=== PATIENT | male | born 1995 ===

== ENCOUNTER 2025-10-06 10:31 | Outpatient (AMB) | payer OTHER, SELFPAY ==
--- NOTE | 2025-10-06 10:35 | AM.OFFWIN_ITS ---
Intake Vital Signs 10/06/25 10:39 Height 5 ft 10 in Weight 132 lb BMI 18.9 BP 112/88 Blood Pressure Location Rt brachial Position Sitting Pulse 71 Pulse Source Pulse Oximeter Temp 97.6 F Temp Source Oral Pulse Oximetry (%) 99 Oxygen Delivery Method Room Air Intake Visit Reasons: [employer]-lt hand thumb swollen-WC Intake Note: Patient presents with LT thumb severe swelling and bruising with numbness after slamming this finger in a car door 4 days ago Allergies No Known Allergies Allergy (Verified 10/06/25 10:40) Do you need a note to return to daycare/school/sports/work: Yes HPI HPI Comments History of Present Illness Details This is a 29-year-old male who presented to the walk-in clinic comp laining of left thumb pain, swelling, and bruising x4 days. 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 He states this occurred just about 4 days ago. He went to [facility] about 12 hours later and he was diagnosed with a subungual hematoma. He had x-rays performed, which were negative for fracture. They offered trephination versus observation and trephination was not performed at this time. Patient states that the bruising and swelling have worsened since then. He states he no longer has any significant pain or tenderness but the thumb does feel slightly numb. Review of Systems Const All systems reviewed & are unremarkable except as noted in HPI and below Reports no additional complaints Eyes Reports no additional complaints ENT Reports no additional complaints Card Reports no additional complaints Resp Reports no additional complaints GI Reports no additional complaints Reports no additional complaints Musc Reports no additional complaints Skin/Breast Reports system reviewed and no additional complaints, except as documented Neuro Reports no additional complaints Psych Reports no additional complaints Endo Reports no additional complaints Kai/Lymph Reports no additional complaints Aller/Immun Reports no additional complaints Physical Exam Exam Exam: Vital signs reviewed. Constitutional: Non-toxic appearing. No acute distress. Well-developed and well-nourished. HEENT: Normocephalic and atraumatic. PERRL/EOMI. Skin: There is a large subungual hematoma to the left thumb with swelling and ecchymosis of the proximal nail fold but the proximal and lateral nail folds are intact. There is no significant tenderness to palpation. There is no erythema of the time. He has full and painless range of motion of the left thumb. Neck: Full and painless range of motion. No cervical lymphadenopathy. Cardio: Regular rate. No lower extremity edema. No JVD. Pulmonary: No respiratory distress. No accessory muscle usage. Musculoskeletal: Normal range of motion in joints throughout the body. No deformity or other signs of injury. Neuro: Alert and oriented x4. Cranial nerves 2-12 grossly intact. No focal deficits appreciated. Psych: Normal mood and affect. Vital Signs: Last Vital Signs Temp 97.6 F 10/06/25 10:39 Pulse 71 10/06/25 10:39 BP 112/88 10/06/25 10:39 Pulse Ox 99 10/06/25 10:39 Oxygen Delivery Method Room Air 10/06/25 10:39 BMI result Body Mass Index 18.9 Assessment & Plan Assessment & Plan (1) Subungual hematoma of left thumb: Code(s): S60.112A - Contusion of left thumb with damage to nail, initial encounter Qualifiers: Encounter type: initial encounter Qualified Code(s): S60.112A - Contusion of left thumb with damage to nail, initial encounter Plan: 29-year-old male who presented to the walk-in clinic complaining of left thumb pain, swelling, and bruising x4 days. On physical examination, patient has a large subungual hematoma of the left thumb with swelling and ecchymosis of the proximal nail fold but the proximal and lateral nail folds are intact. Given that his injury occurred over 48 hours ago, trephination is unlikely to be effective as the blood has likely clotted and trephination could introduce infection/pathogens. Patient already had negative radiographs of the left thumb so re-imaging is not indicated at this time. Recommended continuing with symptomatic management including warm water and Epsom salt soaks, ice to the area, and acetaminophen/ibuprofen for pain management as needed. Patient advised to follow-up here or with his PCP if his symptoms persist and limit his activity. Patient Instructions: -You have a subungual hematoma, which is essentially a collection of blood under your nail. -Unfortunately, it is not recommended to drain a subungual hematoma if it is over 48 hours old as the blood is likely clotted and trephination of the nail could introduce infection. -Thankfully, your x-rays were negative for fracture and there does not appear to be an infection at this time. -Please soak the finger in warm water and epsom salts to aid in drainage. Please continue to ice the finger to help with swelling. -You can use ibuprofen 400 mg every 6 hours or acetaminophen 975 mg every 8 hours as needed for pain. -Please return here or to the emergency department if the swelling worsens and limits your activity, if you develop redness of the thumb, if you develop significant pain of the thumb, or if you develop fevers/chills. Coding Level of Care Code New Pt Level 3 (03986) Diagnoses Subungual hematoma of left thumb, initial encounter S60.112A Encounter type: initial encounter
[2025-10-06 10:39] VITALS: BP 112/88; PULSE 71; TEMP 36.4; O2SAT 99; BMI 18.9
== END 2025-10-06 12:22 | disposition home or self-care (01) ==
PROVIDERS: Visit Provider Physician Assistant Medical
DX: S60.112A Contusion of left thumb with damage to nail, initial encounter (principal)

== ENCOUNTER → 2025-10-06 10:31 | Outpatient (BNVA) | payer OTHER, SELFPAY | PROVIDERS: Visit Provider Physician Assistant Medical | DX: S60.112A Contusion of left thumb with damage to nail, initial encounter (principal) | CPT/HCPCS: 99202 ==